=== PATIENT | female | born 1985 | race Caucasian/White ===

== ENCOUNTER 2016-07-11 10:10 | Outpatient (CLI) | payer OTHER | END 2016-07-11 23:59 | DX: Z00.00 Encounter for general adult medical examination without abnormal findings (principal) ==

== ENCOUNTER 2016-08-15 08:00 | Outpatient (CLI) | payer OTHER | END 2016-08-15 08:01 | disposition home or self-care (01) | DX: Z11.3 Encounter for screening for infections with a predominantly sexual mode of transmission (principal) ==

== ENCOUNTER 2016-08-21 09:59 | Outpatient (CLI) | payer OTHER | END 2016-08-21 23:59 | DX: Z36 Encounter for antenatal screening of mother (principal) ==

== ENCOUNTER 2016-09-15 08:50 | Outpatient (CLI) | payer OTHER | END 2016-09-15 08:51 | disposition home or self-care (01) | DX: Z36 Encounter for antenatal screening of mother (principal) ==

== ENCOUNTER 2016-10-13 16:01 | Outpatient (CLI) | payer OTHER | END 2016-10-13 23:59 | disposition home or self-care (01) | LOC: LAB.WCP 16:01 | PROVIDERS: ATTEND Obstetrics & Gynecology | DX: Z36 Encounter for antenatal screening of mother (principal) | CPT/HCPCS: 36415; 81599 ==

== ENCOUNTER 2016-11-12 07:36 | Outpatient (CLI) | payer OTHER ==
--- NOTE | 2016-11-12 14:16 | Ultrasound Report ---
OBSTETRICAL ULTRASOUND SECOND TRIMESTER: 11/12/2016 CLINICAL HISTORY: For evaluation of anatomy. The patient has had no prior ultrasounds. TECHNIQUE: Real-time scanning was performed with retail sales representative static images obtained. LAST MENSTRUAL PERIOD --- Clinical Age --- US Age 22 weeks 0 days EFW Hadlock 473 g EFW% Hadlock --- Heart Rate 144 bpm EDC --- US EDC 03/18/2017 BPD Hadlock 22 weeks 0 days; Mean mm 52.7 HC Hadlock 21 weeks 6 days; Mean mm 195.9 AC Hadlock 22 weeks 0 days; Mean mm 170.7 FL Hadlock 22 weeks 1 day; Mean mm 38.0 Presentation variable Placental Location anterior Cervical Length 3.8 cm Amniotic Fluid 14.0 cm FINDINGS: A single fetus is noted in variable position within the uterus. Composite gestational age by ultrasound today is 22 weeks. EDC by ultrasound is 03/18/2017. Estimated weight is 473 grams. heart rate is 144 beats per minute and regular. anatomy at the present time appears normal including head, body, spine, four-chamber view of the heart, cardiac outflow tract, and bladder. Normal three vessel umbilical cord is noted. Anterior placenta is seen without evidence of placenta previa. Normal amount of amniotic fluid is noted with amniotic fluid volume index of 14 cm. Umbilical cord insertion site within the placenta is centrally located. Maternal cervix is normal in length measuring 3.8 cm. There is a maternal left adnexal cyst measuring 1.5 cm by 1.4 cm. This probably represents a small left ovarian cyst. IMPRESSION: 1. SINGLE FETUS IS NOTED IN VARIABLE POSITIONS WITHIN THE UTERUS. COMPOSITE GESTATIONAL AGE BY ULTRASOUND TODAY IS 22 WEEKS. ESTIMATED EDC BY TODAY'S ULTRASOUND IS 03/18/2017. 2. ANATOMY AT THE PRESENT TIME APPEARS NORMAL. 3. ANTERIOR PLACENTA. 4. NORMAL AMOUNT OF AMNIOTIC FLUID WITH AMNIOTIC FLUID VOLUME INDEX OF 14.0 CM. 5. MOTHER DEMONSTRATES A LEFT ADNEXAL OVARIAN CYST MEASURING 1.5 CM BY 1.4 CM. MTDD
== END 2016-11-12 07:37 | disposition home or self-care (01) ==
LOC: DI 07:36
PROVIDERS: ATTEND Obstetrics & Gynecology
DX: Z36 Encounter for antenatal screening of mother (principal)
CPT/HCPCS: 76811

== ENCOUNTER 2016-12-01 08:00 | Outpatient (CLI) | payer OTHER | END 2016-12-01 08:01 | disposition home or self-care (01) | DX: R30.0 Dysuria (principal) ==

== ENCOUNTER 2016-12-24 08:31 | Outpatient (CLI) | payer OTHER ==
[2016-12-24 13:11] LABS: HCT - HEMATOCRIT 36.1 % (37.0-47.0); HGB - HEMOGLOBIN 12.5 g/dL (12.0-16.0); MEAN CORPUSCULAR HEMOGLOBIN 32.2 pg (27.0-31.0); MEAN CORPUSCULAR HGB CONC 34.7 g/dL (32.0-36.0); MEAN CORPUSCULAR VOLUME 92.7 fL (81.0-99.0); MEAN PLATELET VOLUME 9.5 fL (7.9-10.8); RED BLOOD COUNT 3.9 10^6/uL (4.20-5.40); WHITE BLOOD COUNT 8.7 x10^3/uL (4.8-10.8)
== END 2016-12-24 08:32 | disposition home or self-care (01) ==
LOC: LAB.WCP 08:31
PROVIDERS: ATTEND Obstetrics & Gynecology
DX: Z36 Encounter for antenatal screening of mother (principal)
CPT/HCPCS: 36415; 82950; 86850

== ENCOUNTER 2017-03-03 08:00 | Outpatient (CLI) | payer OTHER | END 2017-03-03 08:01 | disposition home or self-care (01) | LOC: LAB.R 08:00 | PROVIDERS: ATTEND Obstetrics & Gynecology | DX: Z36.85 Encounter for antenatal screening for Streptococcus B (principal) | CPT/HCPCS: 87081 ==

== ENCOUNTER 2017-03-04 08:41 | Outpatient (CLI) | payer OTHER ==
--- NOTE | 2017-03-05 09:15 | Ultrasound Report ---
OB FOLLOWUP: 03/04/2017 CLINICAL INDICATION: macrosomia. COMPARISON: 11/12/2016. TECHNIQUE: Real-time scanning was performed with route sales representative static images obtained. LAST MENSTRUAL PERIOD 06/11/2016 Clinical Age 38 weeks 0 days US Age 37 weeks 5 days EFW Hadlock 3302 EFW% Hadlock 56 Heart Rate 154 EDC 03/18/2017 US EDC 03/20/2017 [facility]PD Hadlock 38 weeks 6 days; Mean mm 95.3 HC Hadlock *40+ weeks --days; Mean mm 361.4 AC Hadlock 36 weeks 5 days; Mean mm 328.0 FL Hadlock 37 weeks 3 days; Mean mm 73.1 Presentation cephalic Placental Location anterior Cervical Length --- Amniotic Fluid 21.5 cm FINDINGS: There is a single viable intrauterine gestation, in cephalic presentation. heart rate is 154 BPM. The placenta is anterior, without evidence of previa. Amniotic fluid volume is normal, with an JA of 21.5. By size, the fetus measures 37 weeks 5 days (38 weeks 0 days by initial sonogram). Estimated weight by Hadlock method is 3302 grams. The head circumference is greater than 40 weeks (36.1 cm). IMPRESSION: CONFIRMATION OF MACROSOMIA. ESTIMATED WEIGHT OF 3302 GRAMS. SIZE IN KEEPING WITH INITIAL SONOGRAM DATING. [facility]
== END 2017-03-04 08:42 | disposition home or self-care (01) ==
LOC: DI 08:41
PROVIDERS: ATTEND Obstetrics & Gynecology
DX: O36.63X0 Maternal care for excessive fetal growth, third trimester, not applicable or unspecified (principal); Z3A.38 38 weeks gestation of pregnancy
CPT/HCPCS: 76816

== ENCOUNTER 2017-07-08 07:35 | Outpatient (CLI) | payer OTHER ==
[2017-07-08 13:07] LABS: BASOPHILS % (AUTO) 0.3 %; EOSINOPHILS % (AUTO) 0.6 %; HGB - HEMOGLOBIN 12.9 g/dL (12.0-16.0); LYMPHOCYTES # (AUTO) 1.7 10^3/uL (1.5-3.5); LYMPHOCYTES % (AUTO) 33.6 %; MEAN CORPUSCULAR HEMOGLOBIN 31.2 pg (27.0-31.0); MEAN CORPUSCULAR HGB CONC 34.7 g/dL (32.0-36.0); MEAN CORPUSCULAR VOLUME 89.8 fL (81.0-99.0); MONOCYTES # (AUTO) 0.4 10^3/uL (0.0-1.0); MONOCYTES % (AUTO) 8.2 %; NEUTROPHILS # (AUTO) 2.9 10^3/uL (1.5-6.6); NEUTROPHILS % (AUTO) 57.3 %; PLT - PLATELET COUNT 176 10^3/uL (130-450); RED BLOOD COUNT 4.13 10^6/uL (4.20-5.40); RED CELL DISTRIBUTION WIDTH 14.2 % (12.0-15.0); WHITE BLOOD COUNT 5.1 x10^3/uL (4.8-10.8)
[2017-07-08 13:54] LABS: ALBUMIN 4.4 g/dL (3.2-5.5); ALBUMIN/GLOBULIN RATIO 1.6 (1.0-2.2); ALKALINE PHOSPHATASE 42 IU/L (42-121); ALT ALANINE AMINOTRANSFERASE 20 IU/L (10-60); AST ASPARTATE AMINOTRANSFERASE 18 IU/L (10-42); BILIRUBIN,TOTAL 0.7 mg/dL (0.2-1.0); BUN - BLOOD UREA NITROGEN 15 mg/dL (6-20); CALCIUM 8.9 mg/dL (8.5-10.3); CARBON DIOXIDE - CO2 24 mmol/L (21-32); CHLORIDE 105 mmol/L (101-111); CHOLESTEROL 129 mg/dL; CREATININE 0.6 mg/dL (0.4-1.0); GFR - MDRD 118 (>89); GLUCOSE 85 mg/dL (70-100); HDL CHOLESTEROL 63 mg/dL; SODIUM 139 mmol/L (135-145); TOTAL PROTEIN 7.2 g/dL (6.7-8.2)
[2017-07-08 14:13] LABS: LDL CHOLESTEROL,DIRECT 54 mg/dL; LDLD/HDL RATIO 0.9 (<4.4)
[2017-07-08 14:17] LABS: HB2 TOTAL 13.5 g/dL; HEMOGLOBIN A1C 0.41 g/dL; HEMOGLOBIN A1C % 4.9 % (4.6-6.2)
== END 2017-07-08 07:36 | disposition home or self-care (01) ==
LOC: LAB.WCP 07:35
PROVIDERS: ATTEND Family Medicine
DX: Z00.00 Encounter for general adult medical examination without abnormal findings (principal)
CPT/HCPCS: 36415; 80053; 80061; 83036; 83721; 84443; 85025

== ENCOUNTER 2017-07-14 10:05 | Outpatient (CLI) | payer OTHER ==
--- NOTE | 2017-07-14 14:02 | Ultrasound Report ---
ULTRASOUND LEFT BREAST: 07/14/2017 CLINICAL INDICATION: Palpable abnormality. TECHNIQUE: Real-time scanning was performed with home office representative static images obtained. FINDINGS: Ultrasound of the palpable abnormality identified by the patient was performed. At the 1-2 o'clock position, 2 cm from the nipple, there is a cluster of cysts, measuring in aggregate 2.2 x 1.6 x 0.6 cm. No sonographically suspicious findings are identified. IMPRESSION: CLUSTER OF SIMPLE CYSTS, ACCOUNTING FOR THE PALPABLE ABNORMALITY. RECOMMENDATION: Routine annual screening, to commence at age 40, unless otherwise clinically indicated. BIRADS CATEGORY 2 - benign findings. TD: 07/14/2017 14:01
== END 2017-07-14 10:06 | disposition home or self-care (01) ==
LOC: DI 10:05
PROVIDERS: ATTEND Nurse Practitioner Obstetrics & Gynecology
DX: N60.12 Diffuse cystic mastopathy of left breast (principal)
CPT/HCPCS: 76642